=== PATIENT | male | born 1995 | race Caucasian/White ===

== ENCOUNTER 2020-04-18 11:16 | Inpatient (IN) | payer OTHER ==
--- NOTE | 2020-04-18 11:35 | BHS.RME ---
Substance Use & Tx History - Substance Use History Alcohol Substance amount: 2 pints vodka Frequency of use: Daily Substance route: Oral Date of Last Use: 04/18/20 (started age 12, 1AM today) Heroin Substance amount: 15 bag Frequency of use: Daily Substance route: Injection (ex: intravenous or skin popping) Date of Last Use: 04/18/20 (started age 17, 4 am today) Nicotine Substance amount: 1 pack Frequency of use: Daily Substance route: Smoking Date of Last Use: 04/18/20 (started age 13) - Last Treatment Date of last treatment: 08/2018 [facility] Physical/Psych/Mental Status - Behavior General Behavior: Increased activity (restlessness, agitation) Eye Contact: Normal - Cooperativeness Cooperativeness: Cooperative - Thinking Thought Processes: Tight, Logical, Goal Directed - Physical Health Problems Is patient presently having any pain?: No Does patient presently have any injuries (include location): No Does patient currently have a fever: No Is patient : No COWS - Scale Resting Pulse: 1= [place] 81-100 Sweatin= Chills/Flushing Restless Observation: 1= Difficult to Sit Still Pupil Size: 1= Pupils >than Normal Bone or Joint Aches: 2= Severe Diffuse Aches Runny Nose/ Eye Tearin= Runny Nose/Eyes GI Upset > 30mins: 2= Nausea/Diarrhea Tremor Observation: 2= Slight Tremor Visible Yawning Observation: 1= 1-2x During Session Anxiety or Irritability: 2=Irritable/Anxious Goose Flesh Skin: 3=Piloerection COWS Score: 18 CIWA Nausea/Vomitin Muscle Tremors: 3 Anxiety: 4-Mod. Anxious/Guarded Agitation: 3 Paroxysmal Sweats: 4-Forehead w/Sweat Beads Orientation: 1-Uncertain about Date Tacttile Disturbances: 0-None Auditory Disturbances: 0-None Visual Disturbances: 0-None Headache: 2-Mild CIWA-Ar Total Score: 19
[2020-04-18 12:28] VITALS: BMI 21.9
--- NOTE | 2020-04-18 12:37 | HP ---
COWS - Scale Resting Pulse: 1= [place] 81-100 Sweatin= Chills/Flushing Restless Observation: 1= Difficult to Sit Still Pupil Size: 1= Pupils >than Normal Bone or Joint Aches: 2= Severe Diffuse Aches Runny Nose/ Eye Tearin= Runny Nose/Eyes GI Upset > 30mins: 2= Nausea/Diarrhea Tremor Observation: 2= Slight Tremor Visible Yawning Observation: 1= 1-2x During Session Anxiety or Irritability: 2=Irritable/Anxious Goose Flesh Skin: 3=Piloerection COWS Score: 18 CIWA Score Nausea/Vomitin Muscle Tremors: 3 Anxiety: 4-Mod. Anxious/Guarded Agitation: 3 Paroxysmal Sweats: 4-Forehead w/Sweat Beads Orientation: 1-Uncertain about Date Tacttile Disturbances: 0-None Auditory Disturbances: 0-None Visual Disturbances: 0-None Headache: 2-Mild CIWA-Ar Total Score: 19 - Admission Criteria OASAS Guidelines: Admission for Medically Managed Detox: Requires at least one of the followin. CIWA greater than 12 2. Seizures within the past 24 hours 3. Delirium tremens within the past 24 hours 4. Hallucinations within the past 24 hours 5. Acute intervention needed for co occurring medical disorder 6. Acute intervention needed for co occurring psychiatric disorder 7. Severe withdrawal that cannot be handled at a lower level of care (continued vomiting, continued diarrhea, abnormal vital signs) requiring intravenous medication and/or fluids 8. Patient presents the following: CIWA greater than 12 Admission Criteria Met: Admission criteria met Admitting History and Physical - Admission Chief Complaint: Pt is a 25 yo M presenting for detox from alcohol and methadone; "I want to better my life." History of Present Illness: Pt is a 25 yo M presenting for detox from alcohol and methadone; "I want to better my life." Pt last came to [facility] 08/2018 [facility]; did not complete detox or rehab. Pt reports going to [facility] for detox and rehab in 2018. Pt willing to sign contract for completion. Pt started using heroin at 17 but stopped that same year; started using again at 22. Pt reports a trigger for starting to use heroin again was when his fiance had a miscarriage when they were expecting twins. Pt reports intermittent periods of sobriety since starting to use again at 22; reports relapsing again 3 months ago (8 months sober prior to that). Pt reports increased stress has led to increased drinking and heroin use in the last 3 weeks. PMH, PSH, Psych - none Soc/Domiciled - lives with a friend in [place] - none - Substance Use History Alcohol Substance amount: 2 pints vodka Frequency of use: Daily Substance route: Oral Date of Last Use: 04/18/20 (started age 12, 1AM today) Heroin Substance amount: 15 bag Frequency of use: Daily Substance route: Injection (ex: intravenous or skin popping) Date of Last Use: 04/18/20 (started age 17, 4 am today) Nicotine Substance amount: 1 pack Frequency of use: Daily Substance route: Smoking Date of Last Use: 04/18/20 (started age 13) - Last Treatment Date of last treatment: 08/2018 [facility] Admission ROS S - Ebola screening Have you traveled outside of the country in the last 21 days: No Have you been sick,other than usual withdrawal symptoms: No Do you have a fever: No - Review of Systems Constitutional: Chills, Diaphoresis, Changes in sleep (insomnia) EENT: reports: Other (rhinorrhea/lacrimation) Respiratory: reports: No Symptoms reported Cardiac: reports: No Symptoms Reported GI: reports: Nausea : reports: No Symptoms Reported Musculoskeletal: reports: Muscle Pain (diffuse muscle aches) Integumentary: reports: No Symptoms Reported Neuro: reports: Headache (mild), Tremors (mild tremor visible) Psychiatric: reports: Orientated x3, Agitated (mild restlessness), Anxious (moderately anxious) Patient History - Smoking Cessation Smoking history: Current every day smoker Have you smoked in the past 12 months: Yes Aproximately how many cigarettes per day: 20 Initiated information on smoking cessation: Yes 'Breaking Loose' booklet given: 04/18/20 Admission Physical Exam [facility] - Vital Signs Vital Signs: Vital Signs - 24 hr 04/18/20 12:19 Temperature 97.3 F L Pulse Rate 72 Respiratory 12 Rate Blood Pressure 112/62 - Physical General Appearance: Yes: No Apparent Distress, Nourished, Appropriately Dressed, Tremorous (mild), Sweating, Anxious (moderate) HEENTM: Yes: EOMI, Hearing grossly Normal, Normocephalic, Normal Voice Respiratory: Yes: Lungs Clear, Normal Breath Sounds, No Respiratory Distress, No Accessory Muscle Use Neck: Yes: Supple, Trachea in good position Breast: Yes: Breast Exam Deferred Cardiology: Yes: Regular Rhythm, Regular Rate Abdominal: Yes: Normal Bowel Sounds, Non Tender, Flat, Soft Genitourinary: Yes: Other (deferred) Back: Yes: Normal Inspection Musculoskeletal: Yes: full range of Motion, Gait Steady Extremities: Yes: Normal Inspection, Normal Range of Motion, Non-Tender, Tremors (mild) Neurological: Yes: Fully Oriented, Alert, Motor Strength 5/5, Normal Mood/Affect Integumentary: Yes: Normal Color, Dry, Warm - Diagnostic (1) Opioid dependence Current Visit: Yes Status: Acute Qualifiers: Substance use status: in withdrawal Qualified Code(s): F11.23 - Opioid dependence with withdrawal (2) Alcohol dependence Current Visit: Yes Status: Acute Qualifiers: Substance use status: in withdrawal Complication of substance-induced condition: uncomplicated Qualified Code(s): F10.230 - Alcohol dependence with withdrawal, uncomplicated (3) Nicotine dependence Current Visit: Yes Status: Acute Qualifiers: Nicotine product type: cigarettes Substance use status: uncomplicated Qualified Code(s): F17.210 - Nicotine dependence, cigarettes, uncomplicated Cleared for Admission S - Detox or Rehab [facility] Level of Care: Medically Managed Detox Regimen/Protocol: Methadone/Librium Breathalyzer - Breathalyzer Breathalyzer: 0 Urine Drug Screen - Test Device Lot number: [id number] Expiration date: 10/19/21 - Control Is test valid?: Yes - Results Drug screen NEGATIVE: No Urine drug screen results: THC-Marijuana, FEN-Fentanyl, MOP-Opiates Inpatient Rehab Admission - Rehab Decision to Admit Inpatient rehab admission?: No
[2020-04-18] MEDS ORDERED: chlordiazePOXIDE HCL 25 MG CAPSULE PO PRN (12:56)
[2020-04-18] MEDS ORDERED: METHADONE HCL 10 MG TABLET (FOR DETOX USE ONLY) PO ONE (12:56)
[2020-04-18] MEDS ORDERED: IBUPROFEN 400 MG TABLET (FP) PO PRN (12:56)
[2020-04-18] MEDS ORDERED: MAG HYDROX/AL HYDROX/SIMETH 30 ML UNIT-DOSE CUP PO PRN (12:56)
[2020-04-18] MEDS ORDERED: METHOCARBAMOL 500 MG TABLET PO PRN (12:56)
[2020-04-18] MEDS ORDERED: MAGNESIUM CITRATE 300 ML BOTTLE PO PRN (12:56)
[2020-04-18] MEDS ORDERED: ONDANSETRON *ODT* 4 MG TABLET SL PRN (12:56)
[2020-04-18] MEDS ORDERED: ACETAMINOPHEN 325 MG TABLET (FP) PO PRN ×2 (12:56)
[2020-04-18] MEDS ORDERED: BISMUTH SUBSALICYLATE 262 MG/15 ML BTL PO PRN (12:56)
[2020-04-18] MEDS ORDERED: MAGNESIUM HYDROX 2400MG/30ML ORAL SUSPENSION 30 ML CUP PO PRN (12:56)
[2020-04-18] MEDS ORDERED: MENTHOL/PHENOL 1 EACH UD MM PRN (12:56)
[2020-04-18] MEDS: NICOTINE 21 MG/24 HOURS TOPICAL PATCH TD SCH (13:44)
[2020-04-18] MEDS: hydrOXYzine PAMOATE 25 MG CAPSULE (FP) PO SCH ×3 (13:44→22:38)
[2020-04-18] MEDS: NICOTINE POLACRILEX 2 MG GUM BUC PRN (13:45)
[2020-04-18 14:44] LABS: HEMATOCRIT 36.5 % (35.4-49); HEMOGLOBIN 12.5 GM/dL (11.7-16.9); MCH 30.4 pg (25.7-33.7); MCHC 34.2 g/dl (32.0-35.9); MEAN CELL VOLUME 88.7 fl (80-96); MEAN PLT VOLUME 7.8 fl (7.5-11.1); PLATELET COUNT 293 K/MM3 (134-434); RBC 4.12 M/mm3 (4.00-5.60); RDW 13.5 % (11.9-15.9); WHITE BLOOD COUNT 6.6 K/mm3 (4.0-10.0)
--- NOTE | 2020-04-18 14:46 | EKG ---
Test Reason : Blood Pressure : / mmHG Vent. Rate : 060 BPM Atrial Rate : 060 BPM P-R Int : 166 ms QRS Dur : 090 ms QT Int : 412 ms P-R-T Axes : -09 080 053 degrees QTc Int : 412 ms NORMAL SINUS RHYTHM NORMAL ECG NO PREVIOUS ECGS AVAILABLE Confirmed by MD ELIZABETH, SIMRAN ([id number]) on 04/18/2020 2:45:55 PM Referred By: Confirmed By:SIMRAN JOHNSON MD
[2020-04-18 15:37] LABS: ALBUMIN 3.7 g/dl (3.4-5.0); BILIRUBIN,TOTAL 0.4 mg/dL (0.2-1); BLOOD UREA NITROGEN 13.4 mg/dL (7-18); CALCIUM 8.3 mg/dL (8.5-10.1); CREATININE 0.7 mg/dL (0.55-1.3); POTASSIUM 3.6 mmol/L (3.5-5.1); TOT PROT 6.7 g/dl (6.4-8.2)
[2020-04-18] MEDS: chlordiazePOXIDE HCL 25 MG CAPSULE PO SCH ×2 (18:03→22:36)
[2020-04-18] MEDS: THIAMINE HCL 100 MG TABLET (FP) PO SCH (22:36)
[2020-04-18] MEDS: MELATONIN 5 MG TABLETS PO SCH (22:38)
[2020-04-19] MEDS: chlordiazePOXIDE HCL 25 MG CAPSULE PO SCH ×4 (06:00→22:44)
[2020-04-19] MEDS: hydrOXYzine PAMOATE 25 MG CAPSULE (FP) PO SCH ×5 (06:00→22:44)
--- NOTE | 2020-04-19 08:07 | PN ---
Teaching Attending Note Name of Resident: Doug Espinoza ATTENDING PHYSICIAN STATEMENT I saw and evaluated the patient. I reviewed the resident's note and discussed the case with the resident. I agree with the resident's findings and plan as documented. SUBJECTIVE: OBJECTIVE: ASSESSMENT AND PLAN: 1. Opiate withdrawal 2. Alcohol withdrawal Plan 1. Methadone detox protocol 2. Librium detox protocol
[2020-04-19] MEDS ORDERED: METHADONE HCL 10 MG TABLET (FOR DETOX USE ONLY) ONE (09:48)
[2020-04-19] MEDS ORDERED: METHADONE HCL 5 MG TABLET (FOR DETOX USE ONLY) ONE (09:48)
[2020-04-19] MEDS ORDERED: METHADONE (DETOX) 20 MG, METHADONE (DETOX) 5 MG PO ONE (10:00)
[2020-04-19] MEDS: PRENATAL VITAMINS W/ FOLIC ACID TABLET (FP) PO SCH (10:13)
[2020-04-19] MEDS: NICOTINE POLACRILEX 2 MG GUM BUC PRN ×2 (10:13→16:31)
[2020-04-19] MEDS: NICOTINE 21 MG/24 HOURS TOPICAL PATCH TD SCH (10:13)
--- NOTE | 2020-04-19 12:41 | PN ---
[facility] CIWA - CIWA Score Nausea/Vomitin-No Nausea/No Vomiting Muscle Tremors: 3 Anxiety: 3 Agitation: 3 Paroxysmal Sweats: 3 Orientation: 0-Oriented Tacttile Disturbances: 0-None Auditory Disturbances: 0-None Visual Disturbances: 0-None Headache: 0-None Present CIWA-Ar Total Score: 12 BHS COWS - Scale Resting Pulse: 0= [place] 80 or Below Sweatin= Chills/Flushing Restless Observation: 1= Difficult to Sit Still Pupil Size: 0= Normal to Room Light Bone or Joint Aches: 1= Mild Discomfort Runny Nose/ Eye Tearin= Nasal Congestion GI Upset > 30mins: 0= None Tremor Observation of Outstretched Hands: 1= Tremor [place], Not Seen Yawning Observation: 1= 1-2x During Session Anxiety or Irritability: 2=Irritable/Anxious Goose Flesh Skin: 0=Smooth Skin COWS Score: 8 S Progress Note (SOAP) Subjective: sweats shakes body aches interrupted sleep Objective: 04/19/20 12:39 Vital Signs Temperature 98.5 F 04/19/20 06:03 Pulse Rate 69 04/19/20 06:03 Respiratory Rate 18 04/19/20 06:03 Blood Pressure 122/69 04/19/20 06:03 O2 Sat by Pulse Oximetry (%) 100 04/19/20 06:03 Laboratory Tests 04/18/20 04/18/20 04/18/20 13:30 13:30 13:30 WBC 6.6 RBC 4.12 Hgb 12.5 Hct 36.5 MCV 88.7 MCH 30.4 MCHC 34.2 RDW 13.5 Plt Count 293 MPV 7.8 Sodium 137 Potassium 3.6 Chloride 102 Carbon Dioxide 29 Anion Gap 6 L BUN 13.4 Creatinine 0.7 Est GFR (CKD-EPI)AfAm 150.95 Est GFR (CKD-EPI)NonAf 130.24 Random Glucose 120 H Calcium 8.3 L Total Bilirubin 0.4 AST 17 ALT 17 Alkaline Phosphatase 89 Total Protein 6.7 Albumin 3.7 Syphilis Serology Non-reactive COVID-19 ([place]UV[place]INO) 04/18/20 14:00 WBC RBC Hgb Hct MCV MCH MCHC RDW Plt Count MPV Sodium Potassium Chloride Carbon Dioxide Anion Gap BUN Creatinine Est GFR (CKD-EPI)AfAm Est GFR (CKD-EPI)NonAf Random Glucose Calcium Total Bilirubin AST ALT Alkaline Phosphatase Total Protein Albumin Syphilis Serology COVID-19 (JUVENTINO) Not detected labs noted aaox3 lying in bed no acute distress Assessment: 04/19/20 12:40 withdrawals Plan: continue detox increase fluids
[2020-04-19] MEDS: cloNIDine HCL 0.1 MG TABLET PO PRN (18:08)
[2020-04-19] MEDS: THIAMINE HCL 100 MG TABLET (FP) PO SCH (22:44)
[2020-04-19] MEDS: MELATONIN 5 MG TABLETS PO SCH (22:45)
[2020-04-20] MEDS: hydrOXYzine PAMOATE 25 MG CAPSULE (FP) PO SCH ×2 (07:20→10:20)
[2020-04-20] MEDS: chlordiazePOXIDE HCL 25 MG CAPSULE PO SCH ×4 (07:20→22:08)
[2020-04-20] MEDS ORDERED: METHADONE HCL 10 MG TABLET (FOR DETOX USE ONLY) PO ONE (10:00)
[2020-04-20] MEDS: NICOTINE POLACRILEX 2 MG GUM BUC PRN (10:17)
[2020-04-20] MEDS: NICOTINE 21 MG/24 HOURS TOPICAL PATCH TD SCH (10:21)
[2020-04-20] MEDS: PRENATAL VITAMINS W/ FOLIC ACID TABLET (FP) PO SCH (10:21)
[2020-04-20] MEDS ORDERED: hydrOXYzine PAMOATE 25 MG CAPSULE (FP) PO PRN (11:33)
--- NOTE | 2020-04-20 11:38 | PN ---
[facility] CIWA - CIWA Score Nausea/Vomitin-No Nausea/No Vomiting Muscle Tremors: 3 Anxiety: 2 Agitation: 3 Paroxysmal Sweats: 3 Orientation: 0-Oriented Tacttile Disturbances: 0-None Auditory Disturbances: 0-None Visual Disturbances: 0-None Headache: 0-None Present CIWA-Ar Total Score: 11 S COWS - Scale Resting Pulse: 2= [place] 101-120 Sweatin=Flushed/Facial Moisture Restless Observation: 1= Difficult to Sit Still Pupil Size: 0= Normal to Room Light Bone or Joint Aches: 1= Mild Discomfort Runny Nose/ Eye Tearin= None GI Upset > 30mins: 0= None Tremor Observation of Outstretched Hands: 1= Tremor [place], Not Seen Yawning Observation: 1= 1-2x During Session Anxiety or Irritability: 2=Irritable/Anxious Goose Flesh Skin: 0=Smooth Skin COWS Score: 10 S Progress Note (SOAP) Subjective: sweats shakes body aches interrupted sleep irritable agitation nausea i want 4mg nicotine gum Objective: 04/20/20 11:37 Vital Signs Temperature 98.2 F 04/20/20 09:08 Pulse Rate 118 H 04/20/20 09:08 Respiratory Rate 18 04/20/20 09:08 Blood Pressure 132/91 04/20/20 09:08 O2 Sat by Pulse Oximetry (%) 100 04/20/20 09:08 Laboratory Tests 04/18/20 04/18/20 04/18/20 13:30 13:30 13:30 WBC 6.6 RBC 4.12 Hgb 12.5 Hct 36.5 MCV 88.7 MCH 30.4 MCHC 34.2 RDW 13.5 Plt Count 293 MPV 7.8 Sodium 137 Potassium 3.6 Chloride 102 Carbon Dioxide 29 Anion Gap 6 L BUN 13.4 Creatinine 0.7 Est GFR (CKD-EPI)AfAm 150.95 Est GFR (CKD-EPI)NonAf 130.24 Random Glucose 120 H Calcium 8.3 L Total Bilirubin 0.4 AST 17 ALT 17 Alkaline Phosphatase 89 Total Protein 6.7 Albumin 3.7 Syphilis Serology Non-reactive COVID-19 ([place]INO) 04/18/20 14:00 WBC RBC Hgb Hct MCV MCH MCHC RDW Plt Count MPV Sodium Potassium Chloride Carbon Dioxide Anion Gap BUN Creatinine Est GFR (CKD-EPI)AfAm Est GFR (CKD-EPI)NonAf Random Glucose Calcium Total Bilirubin AST ALT Alkaline Phosphatase Total Protein Albumin Syphilis Serology COVID-19 (JUV[place]INO) Not detected labs noted aaox3 ambulating no acute distress Assessment: 04/20/20 11:37 withdrawals Plan: continue detox nicotine gum 4mg ordered as per pt request
[2020-04-20] MEDS: cloNIDine HCL 0.1 MG TABLET PO PRN (12:52)
[2020-04-20] MEDS: NICOTINE POLACRILEX 4 MG GUM BUC PRN (14:10)
[2020-04-20] MEDS: MELATONIN 5 MG TABLETS PO SCH (22:08)
[2020-04-20] MEDS: THIAMINE HCL 100 MG TABLET (FP) PO SCH (22:08)
[2020-04-20] MEDS: METHOCARBAMOL 750 MG TAB PO PRN (22:45)
[2020-04-21] MEDS ORDERED: chlordiazePOXIDE HCL 10 MG CAPSULE PO PRN
[2020-04-21] MEDS: chlordiazePOXIDE HCL 10 MG CAPSULE PO SCH ×4 (05:44→23:03)
[2020-04-21] MEDS ORDERED: METHADONE (DETOX) 10 MG, METHADONE (DETOX) 5 MG PO ONE (10:00)
[2020-04-21] MEDS: METHOCARBAMOL 750 MG TAB PO PRN ×3 (10:34→23:09)
[2020-04-21] MEDS: NICOTINE POLACRILEX 4 MG GUM BUC PRN ×4 (10:34→22:11)
[2020-04-21] MEDS ORDERED: METHADONE HCL 10 MG TABLET (FOR DETOX USE ONLY) ONE (10:35)
[2020-04-21] MEDS ORDERED: METHADONE HCL 5 MG TABLET (FOR DETOX USE ONLY) ONE (10:35)
[2020-04-21] MEDS: NICOTINE 21 MG/24 HOURS TOPICAL PATCH TD SCH (10:36)
[2020-04-21] MEDS: PRENATAL VITAMINS W/ FOLIC ACID TABLET (FP) PO SCH (11:08)
--- NOTE | 2020-04-21 13:37 | PN ---
[facility] CIWA - CIWA Score Nausea/Vomitin-No Nausea/No Vomiting Muscle Tremors: 2 Anxiety: 2 Agitation: 3 Paroxysmal Sweats: 2 Orientation: 0-Oriented Tacttile Disturbances: 0-None Auditory Disturbances: 0-None Visual Disturbances: 0-None Headache: 0-None Present CIWA-Ar Total Score: 9 S COWS - Scale Resting Pulse: 1= [place] 81-100 Sweatin=Flushed/Facial Moisture Restless Observation: 1= Difficult to Sit Still Pupil Size: 0= Normal to Room Light Bone or Joint Aches: 1= Mild Discomfort Runny Nose/ Eye Tearin= None GI Upset > 30mins: 0= None Tremor Observation of Outstretched Hands: 0= None Yawning Observation: 0= None Anxiety or Irritability: 1=Feels Anxious/Irritable Goose Flesh Skin: 0=Smooth Skin COWS Score: 6 S Progress Note (SOAP) Subjective: sweats shakes body aches restless Objective: 04/21/20 13:36 Vital Signs Temperature 97.1 F L 04/21/20 08:20 Pulse Rate 98 H 04/21/20 08:20 Respiratory Rate 18 04/21/20 08:20 Blood Pressure 120/71 04/21/20 08:20 O2 Sat by Pulse Oximetry (%) 100 04/21/20 08:20 Laboratory Tests 04/18/20 04/18/20 04/18/20 13:30 13:30 13:30 WBC 6.6 RBC 4.12 Hgb 12.5 Hct 36.5 MCV 88.7 MCH 30.4 MCHC 34.2 RDW 13.5 Plt Count 293 MPV 7.8 Sodium 137 Potassium 3.6 Chloride 102 Carbon Dioxide 29 Anion Gap 6 L BUN 13.4 Creatinine 0.7 Est GFR (CKD-EPI)AfAm 150.95 Est GFR (CKD-EPI)NonAf 130.24 Random Glucose 120 H Calcium 8.3 L Total Bilirubin 0.4 AST 17 ALT 17 Alkaline Phosphatase 89 Total Protein 6.7 Albumin 3.7 Syphilis Serology Non-reactive COVID-19 ([facility]INO) 04/18/20 14:00 WBC RBC Hgb Hct MCV MCH MCHC RDW Plt Count MPV Sodium Potassium Chloride Carbon Dioxide Anion Gap BUN Creatinine Est GFR (CKD-EPI)AfAm Est GFR (CKD-EPI)NonAf Random Glucose Calcium Total Bilirubin AST ALT Alkaline Phosphatase Total Protein Albumin Syphilis Serology COVID-19 ([place]INO) Not detected labs noted aaox3 ambulating no acute distress Assessment: 04/21/20 13:37 withdrawals Plan: continue detox
[2020-04-21] MEDS: THIAMINE HCL 100 MG TABLET (FP) PO SCH (23:03)
[2020-04-21] MEDS: traZODone HCL 50 MG TABLET (FP) PO SCH (23:04)
[2020-04-21] MEDS: MELATONIN 5 MG TABLETS PO SCH (23:33)
[2020-04-22] MEDS: chlordiazePOXIDE HCL 10 MG CAPSULE PO SCH ×2 (06:23→17:58)
[2020-04-22] MEDS: NICOTINE POLACRILEX 4 MG GUM BUC PRN (09:17)
[2020-04-22] MEDS ORDERED: METHADONE HCL 10 MG TABLET (FOR DETOX USE ONLY) PO ONE (10:00)
[2020-04-22] MEDS: NICOTINE 21 MG/24 HOURS TOPICAL PATCH TD SCH (10:53)
[2020-04-22] MEDS: PRENATAL VITAMINS W/ FOLIC ACID TABLET (FP) PO SCH (10:53)
[2020-04-22] MEDS: hydrOXYzine PAMOATE 50 MG CAPSULE (FP) PO PRN ×2 (11:00→22:08)
[2020-04-22] MEDS ORDERED: MASKS NR ONE (13:47)
--- NOTE | 2020-04-22 13:59 | PN ---
[facility] CIWA - CIWA Score Nausea/Vomitin-No Nausea/No Vomiting Muscle Tremors: None Anxiety: 2 Agitation: 1-Slight > Activity Paroxysmal Sweats: No Perspiration Orientation: 0-Oriented Tacttile Disturbances: 0-None Auditory Disturbances: 0-None Visual Disturbances: 0-None Headache: 0-None Present CIWA-Ar Total Score: 3 S COWS - Scale Resting Pulse: 0= [place] 80 or Below Sweatin= No chills or Flushing Restless Observation: 0= Sits Still Pupil Size: 0= Normal to Room Light Bone or Joint Aches: 1= Mild Discomfort Runny Nose/ Eye Tearin= None GI Upset > 30mins: 0= None Tremor Observation of Outstretched Hands: 0= None Yawning Observation: 0= None Anxiety or Irritability: 2=Irritable/Anxious Goose Flesh Skin: 0=Smooth Skin COWS Score: 3 [facility] Progress Note (SOAP) Subjective: Complaints of mild anxiety. Objective: 04/22/20 14:15 Vital Signs 04/22/20 09:18 Temperature 98.9 F Pulse Rate 64 Respiratory 18 Rate Blood Pressure 110/66 Laboratory Last Values WBC 6.6 K/mm3 (4.0-10.0) 04/18/20 13:30 RBC 4.12 M/mm3 (4.00-5.60) 04/18/20 13:30 Hgb 12.5 GM/dL (11.7-16.9) 04/18/20 13:30 Hct 36.5 % (35.4-49) 04/18/20 13:30 MCV 88.7 fl (80-96) 04/18/20 13:30 MCH 30.4 pg (25.7-33.7) 04/18/20 13:30 MCHC 34.2 g/dl (32.0-35.9) 04/18/20 13:30 RDW 13.5 % (11.9-15.9) 04/18/20 13:30 Plt Count 293 K/MM3 (134-434) 04/18/20 13:30 MPV 7.8 fl (7.5-11.1) 04/18/20 13:30 Sodium 137 mmol/L (136-145) 04/18/20 13:30 Potassium 3.6 mmol/L (3.5-5.1) 04/18/20 13:30 Chloride 102 mmol/L (98-107) 04/18/20 13:30 Carbon Dioxide 29 mmol/L (21-32) 04/18/20 13:30 Anion Gap 6 MMOL/L (8-16) L 04/18/20 13:30 BUN 13.4 mg/dL (7-18) 04/18/20 13:30 Creatinine 0.7 mg/dL (0.55-1.3) 04/18/20 13:30 Est GFR (CKD-EPI)AfAm 150.95 04/18/20 13:30 Est GFR (CKD-EPI)NonAf 130.24 04/18/20 13:30 Random Glucose 120 mg/dL (74-106) H 04/18/20 13:30 Calcium 8.3 mg/dL (8.5-10.1) L 04/18/20 13:30 Total Bilirubin 0.4 mg/dL (0.2-1) 04/18/20 13:30 AST 17 U/L (15-37) 04/18/20 13:30 ALT 17 U/L (13-61) 04/18/20 13:30 Alkaline Phosphatase 89 U/L (45-117) 04/18/20 13:30 Total Protein 6.7 g/dl (6.4-8.2) 04/18/20 13:30 Albumin 3.7 g/dl (3.4-5.0) 04/18/20 13:30 Syphilis Serology Non-reactive (NONREACTIVE) 04/18/20 13:30 COVID-19 ([place]) Not detected (Not Detected) 04/18/20 14:00 labs noted. Assessment: 04/22/20 14:16 Patient seen and examined, alert and oriented x3, in acute respiratory distress. Full ROM, ambulatory in the unit without assistance. Skin warm to touch without lesions. withdrawal symptoms. Plan: Continue detox protocol. D/C in AM
[2020-04-22] MEDS: THIAMINE HCL 100 MG TABLET (FP) PO SCH (22:06)
[2020-04-22] MEDS: MELATONIN 5 MG TABLETS PO SCH (22:06)
[2020-04-22] MEDS: traZODone HCL 50 MG TABLET (FP) PO SCH (22:06)
[2020-04-22] MEDS: METHOCARBAMOL 750 MG TAB PO PRN (22:08)
[2020-04-23] MEDS ORDERED: chlordiazePOXIDE HCL 10 MG CAPSULE PO ONE (05:00)
[2020-04-23] MEDS ORDERED: METHADONE HCL 5 MG TABLET (FOR DETOX USE ONLY) PO ONE (06:00)
[2020-04-23 06:06] VITALS: TEMP 97.5
[2020-04-23] MEDS: NICOTINE POLACRILEX 4 MG GUM BUC PRN ×2 (06:57→10:01)
[2020-04-23 07:43] VITALS: BP 114/55; PULSE 67
[2020-04-23] MEDS: NICOTINE 21 MG/24 HOURS TOPICAL PATCH TD SCH (10:01)
[2020-04-23] MEDS: PRENATAL VITAMINS W/ FOLIC ACID TABLET (FP) PO SCH (10:01)
--- NOTE | 2020-04-23 10:31 | DS ---
[facility] Detox Discharge Summary Admission Date: 04/18/20 - History Additional Comments: Detox protocol completed without any complications. Patient is alert and oriented x3, in no acute respiratory distress. Full ROM, ambulating in unit without assistance. Skin warm to touch without any lesion. Patient stable for discharge today, encouraged to followup with aftercare. Pertinent Past History: History of alcohol, heroin and nicotine use disorder. - Physical Exam Results Vital Signs: Vital Signs Temperature 97.5 F L 04/23/20 05:26 Pulse Rate 67 04/23/20 07:30 Respiratory Rate 18 04/23/20 07:30 Blood Pressure 114/55 L 04/23/20 07:30 O2 Sat by Pulse Oximetry (%) 100 04/23/20 05:26 Vital Signs 04/23/20 04/23/20 05:26 07:30 Temperature 97.5 F L Pulse Rate 71 67 Respiratory 18 18 Rate Blood Pressure 95/55 L 114/55 L O2 Sat by Pulse 100 Oximetry (%) Laboratory Last Values WBC 6.6 K/mm3 (4.0-10.0) 04/18/20 13:30 RBC 4.12 M/mm3 (4.00-5.60) 04/18/20 13:30 Hgb 12.5 GM/dL (11.7-16.9) 04/18/20 13:30 Hct 36.5 % (35.4-49) 04/18/20 13:30 MCV 88.7 fl (80-96) 04/18/20 13:30 MCH 30.4 pg (25.7-33.7) 04/18/20 13:30 MCHC 34.2 g/dl (32.0-35.9) 04/18/20 13:30 RDW 13.5 % (11.9-15.9) 04/18/20 13:30 Plt Count 293 K/MM3 (134-434) 04/18/20 13:30 MPV 7.8 fl (7.5-11.1) 04/18/20 13:30 Sodium 137 mmol/L (136-145) 04/18/20 13:30 Potassium 3.6 mmol/L (3.5-5.1) 04/18/20 13:30 Chloride 102 mmol/L (98-107) 04/18/20 13:30 Carbon Dioxide 29 mmol/L (21-32) 04/18/20 13:30 Anion Gap 6 MMOL/L (8-16) L 04/18/20 13:30 BUN 13.4 mg/dL (7-18) 04/18/20 13:30 Creatinine 0.7 mg/dL (0.55-1.3) 04/18/20 13:30 Est GFR (CKD-EPI)AfAm 150.95 04/18/20 13:30 Est GFR (CKD-EPI)NonAf 130.24 04/18/20 13:30 Random Glucose 120 mg/dL (74-106) H 04/18/20 13:30 Calcium 8.3 mg/dL (8.5-10.1) L 04/18/20 13:30 Total Bilirubin 0.4 mg/dL (0.2-1) 04/18/20 13:30 AST 17 U/L (15-37) 04/18/20 13:30 ALT 17 U/L (13-61) 04/18/20 13:30 Alkaline Phosphatase 89 U/L (45-117) 04/18/20 13:30 Total Protein 6.7 g/dl (6.4-8.2) 04/18/20 13:30 Albumin 3.7 g/dl (3.4-5.0) 04/18/20 13:30 Syphilis Serology Non-reactive (NONREACTIVE) 04/18/20 13:30 COVID-19 ([place]INO) Not detected (Not Detected) 04/18/20 14:00 Labs notes. Pertinent Admission Physical Exam Findings: Withdrawal symptoms. - Treatment Hospital Course: Detox Protocol Followed, Detoxed Safely, Responded well, Discharged Condition Good - Medication Discharge Medications: Ambulatory Orders NK [No Known Home Medication] 04/18/20 - Diagnosis (1) Alcohol dependence Current Visit: Yes Status: Chronic Qualifiers: Substance use status: in withdrawal Complication of substance-induced condition: uncomplicated Qualified Code(s): F10.230 - Alcohol dependence with withdrawal, uncomplicated (2) Nicotine dependence Current Visit: Yes Status: Chronic Qualifiers: Nicotine product type: cigarettes Substance use status: uncomplicated Qualified Code(s): F17.210 - Nicotine dependence, cigarettes, uncomplicated (3) Opioid dependence Current Visit: Yes Status: Acute Qualifiers: Substance use status: in withdrawal Qualified Code(s): F11.23 - Opioid dependence with withdrawal - AMA Did Patient Leave Against Medical Advice: No
== END 2020-04-23 10:20 | disposition other institution (70) | DRG 773 ==
LOC: YASAS 11:16 → Y6N 12:24
PROVIDERS: ADMIT Allergy & Immunology; ATTEND Allergy & Immunology
PROC: HZ2ZZZZ Detoxification Services for Substance Abuse Treatment (ICD-10-PCS; principal; 2020-04-18)
DX: F11.23 Opioid dependence with withdrawal (principal); F10.230 Alcohol dependence with withdrawal, uncomplicated; F17.210 Nicotine dependence, cigarettes, uncomplicated
CPT/HCPCS: 36415; 80053; 85027; 86780; 93005; 93010; C9803; J0735; U0003

== ENCOUNTER 2020-04-23 10:32 | Inpatient (IN) | payer OTHER ==
--- OUTSIDE RECORDS SUMMARY | 2020-04-23 10:35 | XMS ---
:1995 [facility] Support Name Relationship Address Phone UE Unavailable Unavailable Unavailable Krzysztof NOWAK SELF / SAME PATIENT [address] [place] [address] [address] [place] [id number] Re-disclosure Warning The records that you are about to access may contain information from federally- assisted alcohol or drug abuse programs. If such information is present, then the following federally mandated warning applies: This information has been disclosed to you from records protected by federal confidentiality rules (42 CFR part 2). The federal rules prohibit you from making any further disclosure of this information unless further disclosure is expressly permitted by the written consent of the person to whom it pertains or as otherwise permitted by 42 CFR part 2. A general authorization for the release of medical or other information is NOT sufficient for this purpose. The Federal rules restrict any use of the information to criminally investigate or prosecute any alcohol or drug abuse patient.The records that you are about to access may contain highly sensitive health information, the redisclosure of which is protected by Article 27-F of the [facility] Public Health law. If you continue you may haveaccess to information: Regarding HIV / AIDS; Provided by facilities licensed or operated by the [facility] Office of Mental Health; or Provided by the [facility] Office for People With Developmental Disabilities. If such information is present, then the following [facility] mandated warning applies: This information has been disclosed to you from confidential records which are protected by state law. State law prohibits you from making any further disclosure of this information without the specific written consent of the person to whom it pertains, or as otherwise permitted by law. Any unauthorized further disclosure in violation of state law may result in a fine or mcfp sentence or both. A general authorization for the release of medical or other information is NOT sufficient authorization for further disclosure. Insurance Providers Payer name Policy type Policy ID Covered Covered libertarian's Policy P hugo / Coverage libertarian ID relationship to [facility] ormation type [facility]jalva [facility] [id number] SP [id number] FIRST Results ID Date Data Source [id number] 04/18/2020 02:00:00 PM EDT [facility] Name Value Range Interpretation Description Data Sup porting Code Source(s) Document(s ) SARS [facility] coronavirus 2 RNA This lab was ordered by [facility] and reported by [facility]. ID Date Data Source [id number] 03/11/2020 08:34:00 PM EDT [facility] Name Value Range Interpretation Code Description Data Cami rce(s) Supporting Document(s ) COV2 [facility] This lab was ordered by [facility] and reported by [facility] [place]. Procedure
--- OUTSIDE RECORDS SUMMARY | 2020-04-23 10:35 | XMS ---
:1995 [facility] Support Name Relationship Address Phone UE Unavailable Unavailable Unavailable Krzysztof NOWAK SELF / SAME PATIENT [address] [place] [address] [phone] [place] [phone] Re-disclosure Warning The records that you are [...] is protected by Article 27-F of the [facility] Public Health law. If you continue you may haveaccess to information: Regarding HIV / AIDS; Provided by facilities licensed or operated by the [facility] Office of Mental Health; or Provided by the [facility] Office for People With Developmental Disabilities. If such information is present, then the following [facility] mandated warning applies: This information has been [...] law may result in a fine or skilled nursing sentence or both. A general authorization for the release of medical or other information is NOT sufficient authorization for further disclosure. Insurance Providers Payer name Policy type Policy ID Covered Covered republican's Policy P hugo / Coverage republican ID relationship to Grijalva [facility] ormation type grijalva [facility] [id number] SP [id number] FIRST Results ID Date Data Source [id number] 04/18/2020 02:00:00 PM EDT [facility] Name Value Range Interpretation Description Data Sup porting Code Source(s) Document(s ) SARS [facility] coronavirus 2 RNA This lab was ordered by [facility] and reported by [facility]. ID Date Data Source [id number] 03/11/2020 08:34:00 PM EDT [facility] Name Value Range Interpretation Code Description Data Cami rce(s) Supporting Document(s ) COV2 [facility] This lab was ordered by [facility] and reported by [facility] [place]. Procedure
[2020-04-23] MEDS ORDERED: IBUPROFEN 400 MG TABLET (FP) PO PRN (11:58)
[2020-04-23] MEDS ORDERED: MAG HYDROX/AL HYDROX/SIMETH 30 ML UNIT-DOSE CUP PO PRN (11:58)
[2020-04-23] MEDS ORDERED: MAGNESIUM HYDROX 2400MG/30ML ORAL SUSPENSION 30 ML CUP PO PRN (11:58)
[2020-04-23] MEDS ORDERED: P-EPHED 60MG/TRIPROLIDI 2.5MG TABLET PO PRN (11:58)
[2020-04-23] MEDS ORDERED: guaiFENesin 200 MG/10 ML 10 ML UNIT-DOSE CUPS PO PRN (11:58)
[2020-04-23] MEDS ORDERED: ACETAMINOPHEN 325 MG TABLET (FP) PO PRN (11:58)
[2020-04-23] MEDS ORDERED: MENTHOL/PHENOL 1 EACH UD MM PRN (11:58)
[2020-04-23] MEDS ORDERED: LOPERAMIDE HCL 2 MG CAPSULE PO PRN (11:58)
[2020-04-23] MEDS ORDERED: MAGNESIUM CITRATE 300 ML BOTTLE PO PRN (11:58)
--- NOTE | 2020-04-23 12:01 | HP ---
[facility] Rehab Assess/Revision - Admission History Admitted to Rehab from: [facility] [address] [place] Date of Admission to Rehab: 04/23/2020 - Vital signs Vital Signs: Vital Signs Period Temp Pulse Resp BP Sys/Rivero Pulse Ox Last 24 Hr 101 17 110/56 Vital Signs 04/23/20 10:35 Pulse Rate 101 H Respiratory 17 Rate Blood Pressure 110/56 L - Findings Detox History & Physical reviewed: Yes Concur with findings: Yes Inpatient Rehab Admission - Rehab Decision to Admit Inpatient rehab admission?: Yes - Initial Determination Are CD services needed?: Yes Free of communicable disease: Yes Not in need of hospitalization: Yes - Rehab Admission Criteria Previous failed treatment: Yes Poor recovery environment: Yes Comorbidities: Yes Lacks judgement: Yes Patient is meeting Inpatient Rehab admission criteria:: Yes
[2020-04-23] MEDS: NICOTINE POLACRILEX 2 MG GUM BUC PRN ×2 (18:10→21:11)
[2020-04-23] MEDS: THIAMINE HCL 100 MG TABLET (FP) PO SCH (21:12)
[2020-04-23] MEDS: hydrOXYzine PAMOATE 25 MG CAPSULE (FP) PO PRN (21:12)
[2020-04-23] MEDS ORDERED: MELATONIN 5 MG TABLETS PO SCH (22:00)
[2020-04-24] MEDS: hydrOXYzine PAMOATE 25 MG CAPSULE (FP) PO PRN (07:20)
[2020-04-24] MEDS: NICOTINE POLACRILEX 2 MG GUM BUC PRN ×2 (07:21→10:22)
[2020-04-24] MEDS: NICOTINE 7 MG/24 HOURS TOPICAL PATCH TD SCH (10:20)
[2020-04-24] MEDS: PRENATAL VITAMINS W/ FOLIC ACID TABLET (FP) PO SCH (10:20)
--- NOTE | 2020-04-24 12:42 | PN ---
"[facility] Progress Note Note: Pt is a 25 y/o male with a hx of Heroin/alcohol/marijuana use d/o admitted to rehab on 04/23/[address] [place] [address]. Reports he has withdrawal sx- insomnia,anxiety,bodyaches. Pt requesting he wants to get on Suboxone MAT. Pt reports he has no current PCP but goes to Urgent Care when needed. PMHx:Denies Psych Hx:Denies Vital Signs - 24 hr 04/23/20 04/23/20 04/24/20 14:30 22:04 06:00 Temperature Pulse Rate Respiratory Rate Blood Pressure O2 Sat by Pulse 98 97 99 Oximetry (%) 04/24/20 04/24/20 07:12 07:24 Temperature 97.5 F L Pulse Rate 83 Respiratory 18 Rate Blood Pressure 117/83 O2 Sat by Pulse 97 97 Oximetry (%) Alert o x 3 nad but very anxious oob ambulating with steady gait Extremities:no edema, skin intact but healed I.V inj. tracks, dean. forearms. Increase po fluids Maintain safety Robaxin 500 mg po TID PRN for muscle spasm [facility] for Suboxone MAT in [facility] D/w pt information starting on Suboxone treatment and follow up with his counselor to arrange for Suboxone MAT treatment after rehab. Addendum: I-STOP verification Confidential Drug Utilization Report Search Terms: jorje kenya, 1995Search Date: 04/26/2020 13:35:08 PM The Drug Utilization Report below displays all of the controlled substance prescriptions, if any, that your patient has filled in the last twelve months. The information displayed on this report is compiled from pharmacy submissions to the Department, and accurately reflects the information as submitted by the pharmacies. This report was requested by: Irina Lei | Reference #: [id number]"
[2020-04-24] MEDS: MINERAL OIL/PETROLAT/WATER TOPICAL CREAM 113 GM JAR TP SCH (16:30)
[2020-04-24] MEDS: METHOCARBAMOL 500 MG TABLET PO PRN (18:09)
[2020-04-24] MEDS: hydrOXYzine PAMOATE 50 MG CAPSULE (FP) PO PRN (18:09)
[2020-04-24] MEDS: NICOTINE POLACRILEX 4 MG GUM BUC PRN ×2 (18:10→21:14)
[2020-04-24] MEDS: MELATONIN 5 MG TABLETS PO SCH (21:14)
[2020-04-24] MEDS: THIAMINE HCL 100 MG TABLET (FP) PO SCH (21:14)
[2020-04-25] MEDS: hydrOXYzine PAMOATE 50 MG CAPSULE (FP) PO PRN ×3 (00:44→21:15)
[2020-04-25] MEDS ORDERED: TRIMETHOBENZAMIDE HCL 200MG/2ML INJ IM ONE (09:56)
--- NOTE | 2020-04-25 09:57 | PN ---
[facility] COWS - Scale Resting Pulse: 0= [place] 80 or Below Sweatin= Chills/Flushing Restless Observation: 3= Extraneous Movement Pupil Size: 2= Moderately Dilated Bone or Joint Aches: 2= Severe Diffuse Aches Runny Nose/ Eye Tearin= Runny Nose/Eyes GI Upset > 30mins: 3= Vomiting/Diarrhea (n/v) Tremor Observation of Outstretched Hands: 1= Tremor [place], Not Seen Yawning Observation: 0= None Anxiety or Irritability: 1=Feels Anxious/Irritable Goose Flesh Skin: 0=Smooth Skin COWS Score: 15 BHS Progress Note (SOAP) Subjective: pt with nausea and vomiting this morning. c/o protracted withdrawal sx-n/v, musc le aches, irritability, chills, goose bumps. Requesting to be started on Suboxone and met with his counselor. Arrangement has been made for a referral to [facility] C.D program where he will continue MAT after rehab. Objective: 04/25/20 15:10 Vital Signs - 24 hr 04/24/20 04/25/20 04/25/20 20:35 06:10 11:08 Temperature 98.5 F 96.9 F L 98.6 F Pulse Rate 60 98 H Respiratory 18 18 Rate Blood Pressure 129/64 140/88 O2 Sat by Pulse 98 97 96 Oximetry (%) URINE DRUG SCREEN RESULTS Urine Drug Screen Results BZO-Benzodiazepines,MTD-Methadone Alert o x 3 nad oob ambulating with steady gait Abdomen:soft,+bs,nt,nd Assessment: 04/25/20 15:14 s/p detox protracted w/s Suboxone MAT Plan: Suboxone 2mg/0.1mg sl once and monitor pt. will give additional 2mg/0.1mg sl at 1500 today. suboxone 4mg/1 mg sl daily starting tomorrow then adjust to therapeutic dose.
[2020-04-25] MEDS: COLLOIDAL OATMEAL 1 BAR EACH TP PRN (09:58)
[2020-04-25] MEDS: MINERAL OIL/PETROLAT/WATER TOPICAL CREAM 113 GM JAR TP SCH (09:59)
[2020-04-25] MEDS: NICOTINE 7 MG/24 HOURS TOPICAL PATCH TD SCH (09:59)
[2020-04-25] MEDS: PRENATAL VITAMINS W/ FOLIC ACID TABLET (FP) PO SCH (09:59)
[2020-04-25] MEDS ORDERED: ONDANSETRON *ODT* 4 MG TABLET SL PRN (10:00)
[2020-04-25] MEDS: METHOCARBAMOL 500 MG TABLET PO PRN ×2 (10:02→21:15)
[2020-04-25] MEDS: NICOTINE POLACRILEX 4 MG GUM BUC PRN ×3 (10:03→21:16)
[2020-04-25] MEDS ORDERED: BUPRENORPHINE/NALOXONE 2 MG/0.5 MG FILM PACKET SL ONE ×2 (11:19→15:09)
[2020-04-25] MEDS: THIAMINE HCL 100 MG TABLET (FP) PO SCH (21:15)
[2020-04-25] MEDS: MELATONIN 5 MG TABLETS PO SCH (21:15)
[2020-04-26] MEDS ORDERED: BUPRENORPHINE/NALOXONE 4 MG/1 MG FILM PACKET SL SCH (10:00)
[2020-04-26] MEDS: MINERAL OIL/PETROLAT/WATER TOPICAL CREAM 113 GM JAR TP SCH (10:20)
[2020-04-26] MEDS: PRENATAL VITAMINS W/ FOLIC ACID TABLET (FP) PO SCH (10:20)
[2020-04-26] MEDS: NICOTINE 7 MG/24 HOURS TOPICAL PATCH TD SCH (10:20)
[2020-04-26] MEDS: NICOTINE POLACRILEX 4 MG GUM BUC PRN ×2 (11:12→18:29)
--- NOTE | 2020-04-26 11:49 | CONSULT ---
[facility] Psychiatric Consult - Data Date of interview: 04/26/20 Admission source: N Identifying data: Mr Piña is a 25 years old single male, unemployed receiving food stamps, living in [place] with a friend referred from detox on 04/23/20 for inpatient rehabilitation for alcohol, opioid Substance Abuse History: Reports history of alcohol and heroin use. Refer to addiction counselor's summary for further information Medical History: Unremakable. Smokes cigarettes 1 ppd Psychiatric History: Patient denies history of previous psychiatric treatment. However, reports sleping poorly despite taking Melatonin 10 mg/hs prn. Requests "stronger medication for sleep" Physical/Sexual Abuse/Trauma History: Denies history of abuse as a child or DV relationship as an adult Mental Status Exam - Mental Status Exam Alert and Oriented to: Time, Place Cognitive Function: Fair Patient Appearance: Well Groomed Mood: Hopeful, Euthymic Affect: Appropriate Patient Behavior: Cooperative Speech Pattern: Clear Voice Loudness: Normal Thought Process: Intact, Goal Oriented Hallucinations: Denies Suicidal Ideation: Denies Homicidal Ideation: Denies Insight/Judgement: Fair Sleep: Poorly Appetite: Good Muscle strength/Tone: Normal Gait/Station: Normal Psychiatric Findings - Problem List ([place] 1, 2,3) (1) Substance-induced sleep disorder Current Visit: Yes Status: Acute (2) Alcohol dependence Current Visit: No Status: Acute Qualifiers: Substance use status: in withdrawal Complication of substance-induced condition: uncomplicated Qualified Code(s): F10.230 - Alcohol dependence with withdrawal, uncomplicated (3) Opioid dependence Current Visit: No Status: Acute Qualifiers: Substance use status: in withdrawal Qualified Code(s): F11.23 - Opioid dependence with withdrawal (4) Nicotine dependence Current Visit: Yes Status: Acute - Initial Treatment Plan Initial Treatment Plan: 1) Start Belsomra 10 mg po HS prn for insomnia. 2) Continue inpatient rehabilitation
--- NOTE | 2020-04-26 13:48 | PN ---
[facility] Progress Note Note: Pt c/o break through w/s and wants increased Suboxone dose for discomfort- irritability, chills/sweats. Would like Suboxone adjustments. Pt also c/o insomnia, difficulty falling/staying asleep-reports using Seroquel or Trazodone in the past.. Vital Signs - 24 hr 04/25/20 04/26/20 20:46 06:50 Temperature 98.6 F Pulse Rate 81 Respiratory 18 18 Rate Blood Pressure 116/65 O2 Sat by Pulse 98 98 Oximetry (%) Alert o x 3 nad oob ambulating with steady gait Suboxone MAT Additional Suboxone 4mg/1 mg sl @ 1800 today. Start Suboxone 8 mg/2mg sl daily at 6 a.m Psych consult for insomnia w/up today. Pt will follow up with Suboxone MAT with [facility] C>D program after discharge.
[2020-04-26] MEDS ORDERED: BUPRENORPHINE/NALOXONE 4 MG/1 MG FILM PACKET SL ONE (18:00)
[2020-04-26] MEDS: METHOCARBAMOL 500 MG TABLET PO PRN (21:22)
[2020-04-26] MEDS: MELATONIN 5 MG TABLETS PO SCH (21:22)
[2020-04-26] MEDS: hydrOXYzine PAMOATE 50 MG CAPSULE (FP) PO PRN (21:22)
[2020-04-26] MEDS: THIAMINE HCL 100 MG TABLET (FP) PO SCH (21:23)
[2020-04-26] MEDS ORDERED: SUVOREXANT 10 MG TABLET PO PRN (22:00)
[2020-04-27] MEDS: BUPRENORPHINE/NALOXONE 8 MG/2 MG FILM PACKET SL SCH (06:23)
[2020-04-27] MEDS: NICOTINE 7 MG/24 HOURS TOPICAL PATCH TD SCH (10:40)
[2020-04-27] MEDS: PRENATAL VITAMINS W/ FOLIC ACID TABLET (FP) PO SCH (10:40)
[2020-04-27] MEDS: NICOTINE POLACRILEX 4 MG GUM BUC PRN ×3 (10:41→21:17)
[2020-04-27] MEDS: MINERAL OIL/PETROLAT/WATER TOPICAL CREAM 113 GM JAR TP SCH (10:42)
--- NOTE | 2020-04-27 15:33 | PN ---
S Progress Note Note: Psychiatric nurse practitioner note: Patient reports difficulty sleeping despite accepting Belsomra 10mg HS PRN. 1) Will d/c Belsomra 10mg HS. 2) Will order Belsomra 15mg HS PRN. Benefits and side effects discussed. Verbal consent given.
[2020-04-27] MEDS: METHOCARBAMOL 500 MG TABLET PO PRN (21:17)
[2020-04-27] MEDS: SUVOREXANT 15 MG TABLET PO PRN (21:17)
[2020-04-27] MEDS: MELATONIN 5 MG TABLETS PO SCH (21:17)
[2020-04-27] MEDS: hydrOXYzine PAMOATE 50 MG CAPSULE (FP) PO PRN (21:17)
[2020-04-27] MEDS: THIAMINE HCL 100 MG TABLET (FP) PO SCH (21:18)
[2020-04-28] MEDS: NICOTINE POLACRILEX 4 MG GUM BUC PRN ×5 (06:10→21:32)
[2020-04-28] MEDS: BUPRENORPHINE/NALOXONE 8 MG/2 MG FILM PACKET SL SCH (06:10)
[2020-04-28] MEDS: MINERAL OIL/PETROLAT/WATER TOPICAL CREAM 113 GM JAR TP SCH (09:54)
[2020-04-28] MEDS: PRENATAL VITAMINS W/ FOLIC ACID TABLET (FP) PO SCH (09:54)
[2020-04-28] MEDS: NICOTINE 7 MG/24 HOURS TOPICAL PATCH TD SCH (09:54)
[2020-04-28] MEDS: SUVOREXANT 15 MG TABLET PO PRN ×2 (09:56→21:32)
[2020-04-28] MEDS: NICOTINE 21 MG/24 HOURS TOPICAL PATCH TD SCH (15:04)
[2020-04-28] MEDS: BUPRENORPHINE/NALOXONE 4 MG/1 MG FILM PACKET SL SCH (17:34)
[2020-04-28] MEDS: THIAMINE HCL 100 MG TABLET (FP) PO SCH (21:32)
[2020-04-28] MEDS: hydrOXYzine PAMOATE 50 MG CAPSULE (FP) PO PRN (21:32)
[2020-04-28] MEDS: MELATONIN 5 MG TABLETS PO SCH (21:32)
[2020-04-28] MEDS: METHOCARBAMOL 500 MG TABLET PO PRN (21:32)
[2020-04-29] MEDS: BUPRENORPHINE/NALOXONE 8 MG/2 MG FILM PACKET SL SCH (06:39)
[2020-04-29] MEDS: NICOTINE POLACRILEX 4 MG GUM BUC PRN ×5 (06:39→21:24)
[2020-04-29] MEDS: NICOTINE 21 MG/24 HOURS TOPICAL PATCH TD SCH (09:36)
[2020-04-29] MEDS: MINERAL OIL/PETROLAT/WATER TOPICAL CREAM 113 GM JAR TP SCH ×2 (09:36→10:47)
[2020-04-29] MEDS: PRENATAL VITAMINS W/ FOLIC ACID TABLET (FP) PO SCH (09:36)
[2020-04-29] MEDS: BUPRENORPHINE/NALOXONE 4 MG/1 MG FILM PACKET SL SCH (17:31)
[2020-04-29] MEDS: THIAMINE HCL 100 MG TABLET (FP) PO SCH (21:23)
[2020-04-29] MEDS: METHOCARBAMOL 500 MG TABLET PO PRN (21:23)
[2020-04-29] MEDS: SUVOREXANT 15 MG TABLET PO PRN (21:23)
[2020-04-29] MEDS: hydrOXYzine PAMOATE 50 MG CAPSULE (FP) PO PRN (21:23)
[2020-04-29] MEDS: MELATONIN 5 MG TABLETS PO SCH (21:23)
[2020-04-30] MEDS: NICOTINE POLACRILEX 4 MG GUM BUC PRN ×5 (06:26→21:31)
[2020-04-30] MEDS: BUPRENORPHINE/NALOXONE 8 MG/2 MG FILM PACKET SL SCH (06:26)
[2020-04-30] MEDS: PRENATAL VITAMINS W/ FOLIC ACID TABLET (FP) PO SCH (10:01)
[2020-04-30] MEDS: NICOTINE 21 MG/24 HOURS TOPICAL PATCH TD SCH (10:01)
[2020-04-30] MEDS: hydrOXYzine PAMOATE 50 MG CAPSULE (FP) PO PRN ×3 (10:03→21:30)
[2020-04-30] MEDS: MINERAL OIL/PETROLAT/WATER TOPICAL CREAM 113 GM JAR TP SCH (10:05)
[2020-04-30] MEDS: BUPRENORPHINE/NALOXONE 4 MG/1 MG FILM PACKET SL SCH (18:13)
[2020-04-30] MEDS: MELATONIN 5 MG TABLETS PO SCH (21:29)
[2020-04-30] MEDS: THIAMINE HCL 100 MG TABLET (FP) PO SCH (21:30)
[2020-04-30] MEDS: SUVOREXANT 15 MG TABLET PO PRN (21:30)
[2020-05-01] MEDS: BUPRENORPHINE/NALOXONE 8 MG/2 MG FILM PACKET SL SCH ×2 (06:21→17:35)
[2020-05-01] MEDS: NICOTINE POLACRILEX 4 MG GUM BUC PRN ×5 (06:22→23:50)
[2020-05-01] MEDS: PRENATAL VITAMINS W/ FOLIC ACID TABLET (FP) PO SCH (10:08)
[2020-05-01] MEDS: NICOTINE 21 MG/24 HOURS TOPICAL PATCH TD SCH (10:08)
[2020-05-01] MEDS: hydrOXYzine PAMOATE 50 MG CAPSULE (FP) PO PRN ×2 (10:10→21:22)
[2020-05-01] MEDS: MINERAL OIL/PETROLAT/WATER TOPICAL CREAM 113 GM JAR TP SCH (10:11)
--- NOTE | 2020-05-01 14:48 | PN ---
BHS COWS - Scale Resting Pulse: 0= [place] 80 or Below Sweatin= No chills or Flushing Restless Observation: 1= Difficult to Sit Still Pupil Size: 0= Normal to Room Light Bone or Joint Aches: 2= Severe Diffuse Aches Runny Nose/ Eye Tearin= None GI Upset > 30mins: 0= None Tremor Observation of Outstretched Hands: 0= None Yawning Observation: 0= None Anxiety or Irritability: 2=Irritable/Anxious Goose Flesh Skin: 0=Smooth Skin COWS Score: 5 BHS Progress Note (SOAP) Subjective: Patient c/o restlessness, anxiety and body aches. Currently on suboxone MAT for opiod dependence. Requesting dose adjustment from current dose of 12mg s/l daily. Objective: 05/01/20 14:47 Vital Signs Temperature 97.5 F L 05/01/20 06:07 Pulse Rate 74 05/01/20 06:07 Respiratory Rate 18 05/01/20 06:07 Blood Pressure 128/84 05/01/20 06:07 O2 Sat by Pulse Oximetry (%) 97 05/01/20 06:07 PE alert and oriented x 3 skin warm and dry +perrla, eoms intact bl gi nt, nd ext full rom, ,amb ad rogelio no tremors anxious, restless Assessment: 05/01/20 14:47 suboxone mat opiod dependence Plan: Will increase to Suboxone 8mg sl bid monitor clinically
[2020-05-01] MEDS: THIAMINE HCL 100 MG TABLET (FP) PO SCH (21:20)
[2020-05-01] MEDS: MELATONIN 5 MG TABLETS PO SCH (21:20)
[2020-05-01] MEDS: METHOCARBAMOL 500 MG TABLET PO PRN (21:22)
[2020-05-02] MEDS: NICOTINE POLACRILEX 4 MG GUM BUC PRN ×6 (06:21→21:41)
[2020-05-02] MEDS: BUPRENORPHINE/NALOXONE 8 MG/2 MG FILM PACKET SL SCH ×2 (06:21→17:43)
[2020-05-02] MEDS: PRENATAL VITAMINS W/ FOLIC ACID TABLET (FP) PO SCH (09:52)
[2020-05-02] MEDS: MINERAL OIL/PETROLAT/WATER TOPICAL CREAM 113 GM JAR TP SCH (09:52)
[2020-05-02] MEDS: hydrOXYzine PAMOATE 50 MG CAPSULE (FP) PO PRN ×2 (09:53→21:42)
[2020-05-02] MEDS: NICOTINE 21 MG/24 HOURS TOPICAL PATCH TD SCH (09:55)
[2020-05-02] MEDS: MELATONIN 5 MG TABLETS PO SCH (21:40)
[2020-05-02] MEDS: THIAMINE HCL 100 MG TABLET (FP) PO SCH (21:40)
[2020-05-02] MEDS: METHOCARBAMOL 500 MG TABLET PO PRN (21:42)
[2020-05-02] MEDS: SUVOREXANT 5 MG TABLET PO PRN (21:43)
[2020-05-03] MEDS: NICOTINE POLACRILEX 4 MG GUM BUC PRN ×8 (01:19→21:31)
[2020-05-03] MEDS: BUPRENORPHINE/NALOXONE 8 MG/2 MG FILM PACKET SL SCH ×2 (06:17→17:30)
[2020-05-03] MEDS: PRENATAL VITAMINS W/ FOLIC ACID TABLET (FP) PO SCH (10:06)
[2020-05-03] MEDS: hydrOXYzine PAMOATE 50 MG CAPSULE (FP) PO PRN ×2 (10:06→21:30)
[2020-05-03] MEDS: MINERAL OIL/PETROLAT/WATER TOPICAL CREAM 113 GM JAR TP SCH (10:06)
[2020-05-03] MEDS: NICOTINE 21 MG/24 HOURS TOPICAL PATCH TD SCH (10:06)
[2020-05-03] MEDS: COLLOIDAL OATMEAL 1 BAR EACH TP PRN (10:08)
[2020-05-03] MEDS: METHOCARBAMOL 500 MG TABLET PO PRN ×2 (10:08→21:30)
[2020-05-03] MEDS: SUVOREXANT 5 MG TABLET PO PRN (21:30)
[2020-05-03] MEDS: THIAMINE HCL 100 MG TABLET (FP) PO SCH (21:30)
[2020-05-03] MEDS: MELATONIN 5 MG TABLETS PO SCH (21:31)
[2020-05-04] MEDS: NICOTINE POLACRILEX 4 MG GUM BUC PRN (01:23)
[2020-05-04 06:16] VITALS: BP 123/62; PULSE 75; TEMP 97.5
[2020-05-04] MEDS: BUPRENORPHINE/NALOXONE 8 MG/2 MG FILM PACKET SL SCH (06:44)
[2020-05-04] MEDS: PRENATAL VITAMINS W/ FOLIC ACID TABLET (FP) PO SCH (09:42)
[2020-05-04] MEDS: MINERAL OIL/PETROLAT/WATER TOPICAL CREAM 113 GM JAR TP SCH (09:42)
[2020-05-04] MEDS: NICOTINE 21 MG/24 HOURS TOPICAL PATCH TD SCH (09:42)
--- NOTE | 2020-05-04 09:49 | DS ---
[facility] Rehab Discharge Summary - [facility] Rehab Discharge Summary Admission Date: 04/23/20 Discharge Date: 05/04/20 - History Present History: Alcohol dependence, Opioid dependence Pertinent Past History: Denies - Discharge Physical Exam Vital Signs: Vital Signs Temperature 97.5 F L 05/04/20 06:15 Pulse Rate 75 05/04/20 06:15 Respiratory Rate 18 05/04/20 06:15 Blood Pressure 123/62 05/04/20 06:15 O2 Sat by Pulse Oximetry (%) 97 05/04/20 06:15 Pertinent Admission Physical Exam Findings: s/p detox withdrawal sx - Treatment Discharge Condition: Discharge condition good, Rehabilitated safely, Responded well, Outpatient referral accepted Hospital Course: Pt is a 25 y/o male admitted to rehab after completing detox on discharging today. Pt restarted Suboxone MAT and currently on Suboxone 8mg/2mg sl BID while in rehab and has been referred to continue treatment at [facility]. Pt showed much improved in mood and general comfort, engaged in groups and unit activities and verbalized MAT is helping him. - Medication Discharge Medications: Ambulatory Orders Buprenorphine/Naloxone [Suboxone 8Mg/2Mg Sl Film -] 1 each SL BID #28 packet MDD 2 05/04/20 - Medication-Assisted Treatment (MAT) Medication-Assisted Treatment (MAT): Yes Medication Prescribed: Suboxone - Discharge Instructions Diet, activity, other medical instructions: Diet:Regular Activity:oob ad rogelio Other medical instructions:f/u with primary care as needed with your PCP at [facility]. - Diagnosis (1) Nicotine dependence Status: Chronic Qualifiers: Nicotine product type: cigarettes Substance use status: uncomplicated Qualified Code(s): F17.210 - Nicotine dependence, cigarettes, uncomplicated (2) Alcohol dependence Status: Chronic Qualifiers: Substance use status: in withdrawal Complication of substance-induced condition: uncomplicated Qualified Code(s): F10.230 - Alcohol dependence with withdrawal, uncomplicated (3) Opioid dependence Status: Chronic Qualifiers: Substance use status: uncomplicated Qualified Code(s): F11.20 - Opioid dependence, uncomplicated (4) Encounter for monitoring Suboxone maintenance therapy Status: Chronic - Follow-up Referral Minutes to complete discharge: 25 - AMA Did Patient Leave Against Medical Advice: No Additional Comments: Soboxone 8mg/2mg sl BID #28 x 14 days electronically sent to [facility]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 Pt reminded to follow up with referral site to continue MAT.
== END 2020-05-04 10:10 | disposition home or self-care (01) | DRG 772 ==
LOC: YASAS 10:32 → Y5N 10:33
PROVIDERS: ADMIT Allergy & Immunology; ATTEND Allergy & Immunology
PROC: HZ42ZZZ Group Counseling for Substance Abuse Treatment, Cognitive-Behavioral (ICD-10-PCS; principal; 2020-04-23)
DX: F10.20 Alcohol dependence, uncomplicated (principal); F11.20 Opioid dependence, uncomplicated; F17.210 Nicotine dependence, cigarettes, uncomplicated; F19.282 Other psychoactive substance dependence with psychoactive substance-induced sleep disorder; Z51.81 Encounter for therapeutic drug level monitoring; Z79.899 Other long term (current) drug therapy
CPT/HCPCS: Q0162

== ENCOUNTER 2023-11-14 20:23 | Inpatient (IN) | payer OTHER ==
[2023-11-14 22:51] VITALS: BMI 19.3
[2023-11-14] MEDS ORDERED: NALOXONE HCL 0.4 MG/ML VIAL IM PRN (23:37)
[2023-11-14] MEDS ORDERED: ONDANSETRON *ODT* 4 MG TABLET SL PRN (23:37)
[2023-11-14] MEDS ORDERED: ACETAMINOPHEN 325 MG TABLET (FP) PO PRN (23:37)
[2023-11-14] MEDS ORDERED: IBUPROFEN 600 MG TABLET (FP) PO PRN (23:37)
[2023-11-14] MEDS ORDERED: guaiFENesin 600 MG TABLET.ER (FP) PO PRN (23:37)
[2023-11-14] MEDS ORDERED: MAG HYDROX/AL HYDROX/SIMETH 30 ML UNIT-DOSE CUP PO PRN (23:37)
[2023-11-14] MEDS ORDERED: P-EPHED 60MG/TRIPROLIDI 2.5MG TABLET PO PRN (23:37)
[2023-11-14] MEDS ORDERED: LOPERAMIDE HCL 2 MG CAPSULE PO PRN (23:37)
[2023-11-14] MEDS ORDERED: BENZONATATE 200 MG CAPSULE PO PRN (23:37)
[2023-11-14] MEDS ORDERED: IBUPROFEN 400 MG TABLET (FP) PO PRN (23:37)
[2023-11-14] MEDS ORDERED: MAGNESIUM HYDROX 2400MG/30ML ORAL SUSPENSION 30 ML CUP PO PRN (23:37)
[2023-11-14] MEDS ORDERED: NALOXONE HCL (KLOXXADO) 8 MG SPRAY NS PRN (23:37)
[2023-11-14] MEDS ORDERED: METHOCARBAMOL 500 MG TABLET PO PRN (23:37)
[2023-11-14] MEDS ORDERED: BISMUTH SUBSALICYLATE 524 MG/30 ML PO PRN (23:37)
[2023-11-14] MEDS ORDERED: BENZOCAINE/MENTHOL (CHLORASEPTIC ) LOZENGE MM PRN (23:37)
[2023-11-14] MEDS ORDERED: POLYETHYLENE GLYCOL (HEALTHYLAX) 3350 17 GM PACKET PO PRN (23:37)
[2023-11-14] MEDS ORDERED: DICYCLOMINE HCL 10 MG CAPSULE PO PRN (23:37)
[2023-11-14] MEDS ORDERED: NICOTINE POLACRILEX 2 MG GUM BUC PRN (23:37)
[2023-11-15] MEDS ORDERED: methaDONE HCL 10 MG TABLET (FOR DETOX USE ONLY) ONE (00:26)
[2023-11-15] MEDS: methaDONE HCL 10 MG TABLET PO PRN (00:33)
[2023-11-15] MEDS: methaDONE HCL 10 MG TABLET PO ONE ×2 (06:57→10:06)
[2023-11-15] MEDS ORDERED: methaDONE HCL 40 MG DISPERSABLE TABLET PO ONE (10:00)
[2023-11-15] MEDS: PRENATAL VITAMINS W/ FOLIC ACID TABLET (FP) PO SCH (10:05)
[2023-11-15] MEDS: THIAMINE 100 MG TABLET PO SCH (23:19)
[2023-11-15] MEDS: MELATONIN 5 MG TABLETS PO SCH (23:19)
[2023-11-16] MEDS ORDERED: cloNIDine HCL 0.1 MG TABLET PO PRN
[2023-11-16] MEDS: methaDONE HCL 10 MG TABLET PO ONE (09:57)
[2023-11-16] MEDS ORDERED: methaDONE HCL 40 MG DISPERSABLE TABLET PO ONE (10:00)
[2023-11-17] MEDS ORDERED: methaDONE HCL 40 MG DISPERSABLE TABLET PO ONE (10:00)
[2023-11-17] MEDS: methaDONE HCL 10 MG TABLET PO ONE (10:32)
[2023-11-17 18:02] VITALS: BP 100/57; PULSE 82; RESP 16; TEMP 96.9
[2023-11-18] MEDS ORDERED: methaDONE HCL 40 MG DISPERSABLE TABLET PO ONE (10:00)
[2023-11-19] MEDS ORDERED: methaDONE HCL 40 MG DISPERSABLE TABLET PO ONE (10:00)
== END 2023-11-17 19:08 | disposition other institution (70) | DRG 773 ==
LOC: YASAS 20:23 → Y6N 11-15 01:07
PROVIDERS: ADMIT Allergy & Immunology; ATTEND Allergy & Immunology
PROC: HZ2ZZZZ Detoxification Services for Substance Abuse Treatment (ICD-10-PCS; principal; 2023-11-15)
DX: F11.23 Opioid dependence with withdrawal (principal); F17.210 Nicotine dependence, cigarettes, uncomplicated; Z28.310 Unvaccinated for COVID-19; Z28.9 Immunization not carried out for unspecified reason; Z59.02 Unsheltered homelessness; Z56.0 Unemployment, unspecified
CPT/HCPCS: 80305; 87811; 93005; 93010

== ENCOUNTER 2023-11-17 19:17 | Inpatient (IN) | payer OTHER ==
[~2023-11-17 19:17] MED LIST: BENZOCAINE/MENTHOL (CHLORASEPTIC ) LOZENGE MM PRN; BENZONATATE 200 MG CAPSULE PO PRN; LOPERAMIDE HCL 2 MG CAPSULE PO PRN; NALOXONE HCL (KLOXXADO) 8 MG SPRAY NS PRN; NALOXONE HCL 0.4 MG/ML VIAL IM PRN; NICOTINE 7 MG/24 HOURS TOPICAL PATCH TD PRN; POLYETHYLENE GLYCOL (HEALTHYLAX) 3350 17 GM PACKET PO PRN; guaiFENesin 600 MG TABLET.ER (FP) PO PRN
[2023-11-17] MEDS: THIAMINE 100 MG TABLET PO SCH (21:47)
[2023-11-17] MEDS: MELATONIN 5 MG TABLETS PO SCH (21:47)
[2023-11-18] MEDS ORDERED: methaDONE HCL 10 MG TABLET PO ONE (10:00)
[2023-11-18] MEDS: PRENATAL VITAMINS W/ FOLIC ACID TABLET (FP) PO SCH (10:02)
[2023-11-18] MEDS: methaDONE HCL 10 MG TABLET PO ONE ×2 (10:02→11:58)
[2023-11-19] MEDS ORDERED: methaDONE HCL 10 MG TABLET PO SCH (06:00)
[2023-11-19] MEDS: methaDONE HCL 10 MG TABLET PO SCH (06:18)
[2023-11-20] MEDS: SILVER SULFADIAZINE 1% TOP CREAM 50 GM JAR TP SCH (15:07)
[2023-11-21] MEDS: methaDONE HCL 40 MG DISPERSABLE TABLET PO SCH (05:59)
[2023-11-23] MEDS: methaDONE HCL 10 MG TABLET PO ONE (13:18)
[2023-11-23] MEDS: NICOTINE POLACRILEX 2 MG GUM BUC PRN (13:24)
[2023-11-24] MEDS ORDERED: methaDONE HCL 40 MG DISPERSABLE TABLET PO SCH (06:00)
[2023-11-24] MEDS: methaDONE 40 MG, methaDONE 10 MG PO SCH (06:10)
[2023-11-27] MEDS: methaDONE 40 MG, methaDONE 20 MG PO SCH (05:57)
[2023-11-27] MEDS ORDERED: methaDONE HCL 40 MG DISPERSABLE TABLET PO SCH (06:00)
[2023-11-27] MEDS: NICOTINE POLACRILEX 4 MG GUM BUC PRN (18:20)
[2023-11-28] MEDS: IBUPROFEN 600 MG TABLET (FP) PO PRN (02:26)
[2023-11-28] MEDS: ACETAMINOPHEN 325 MG TABLET (FP) PO PRN (06:05)
[2023-11-28] MEDS: BENZOCAINE 20 % GEL TUBE MM PRN (14:31)
[2023-11-28] MEDS: AMOX TR/POT CLAV 500MG/125MG TABLETS (FP) PO SCH (16:46)
[2023-12-01] MEDS: NICOTINE 14 MG/24 HOURS TOPICAL PATCH TD SCH (09:56)
[2023-12-01] MEDS: IBUPROFEN 400 MG TABLET (FP) PO PRN (09:58)
[2023-12-01] MEDS: methaDONE HCL 10 MG TABLET PO ONE (10:53)
[2023-12-01] MEDS: MAGNESIUM HYDROX 2400MG/30ML ORAL SUSPENSION 30 ML CUP PO PRN (16:34)
[2023-12-01] MEDS: hydrOXYzine PAMOATE 25 MG CAPSULE (FP) PO PRN (21:36)
[2023-12-02] MEDS ORDERED: methaDONE HCL 40 MG DISPERSABLE TABLET PO SCH (06:00)
[2023-12-02] MEDS: methaDONE 40 MG, methaDONE 30 MG PO SCH (06:21)
[2023-12-04] MEDS: SUVOREXANT 10 MG TABLET PO PRN (21:42)
[2023-12-05] MEDS: methaDONE HCL 40 MG DISPERSABLE TABLET PO SCH (06:59)
[2023-12-06] MEDS: ARTIFICIAL TEARS OPHTHALMIC DROPS OU PRN (15:06)
[2023-12-06] MEDS ORDERED: SUVOREXANT 10 MG TABLET PO PRN (22:00)
[2023-12-07] MEDS ORDERED: SUVOREXANT 10 MG TABLET PO PRN (22:00)
[2023-12-08] MEDS ORDERED: methaDONE HCL 40 MG DISPERSABLE TABLET PO SCH (11:06)
[2023-12-08] MEDS: SUVOREXANT 15 MG TABLET PO PRN (21:18)
[2023-12-12] MEDS: SUVOREXANT 15 MG TABLET PO PRN (21:14)
[2023-12-16 06:51] VITALS: RESP 16
[2023-12-17 06:58] VITALS: BP 127/70; PULSE 75; TEMP 97.7
[2023-12-17] MEDS: MAG HYDROX/AL HYDROX/SIMETH 30 ML UNIT-DOSE CUP PO PRN (08:31)
[2023-12-17] MEDS ORDERED: SUVOREXANT 15 MG TABLET PO PRN (22:00)
== END 2023-12-17 10:07 | disposition home or self-care (01) | DRG 772 ==
LOC: YASAS 19:17 → Y3W 19:19
PROVIDERS: ADMIT Allergy & Immunology; ATTEND Psychiatry & Neurology Pain Medicine
PROC: HZ42ZZZ Group Counseling for Substance Abuse Treatment, Cognitive-Behavioral (ICD-10-PCS; principal; 2023-11-17)
DX: F11.20 Opioid dependence, uncomplicated (principal); F10.20 Alcohol dependence, uncomplicated; F17.210 Nicotine dependence, cigarettes, uncomplicated; F19.282 Other psychoactive substance dependence with psychoactive substance-induced sleep disorder; H04.123 Dry eye syndrome of bilateral lacrimal glands; K04.7 Periapical abscess without sinus; T81.30XD Disruption of wound, unspecified, subsequent encounter; X58.XXXD Exposure to other specified factors, subsequent encounter
CPT/HCPCS: 93005; 93010